=== PATIENT | male | born 1970 | race Caucasian/White ===

== ENCOUNTER 2020-02-28 19:38 | Emergency (ER) | payer OTHER, SELFPAY ==
[~2020-02-28] VITALS: Ht 170.2 cm; Wt 99.3 kg
[2020-02-28 20:11] VITALS: BP_SYST 151
--- NOTE | 2020-02-28 20:11 | NUR ---
Patient brought in via bls for cough and congestion x 5 days. Patient reports taking COVID test on Monday and tested positive. Patient has exposure to both daughters that have been tested and positive. Able to speak full sentences. Productive cough. Pain 6/10 sinus pain. No acute distress noted. Will continue to monitor.
--- NOTE | 2020-02-28 20:49 | NUR ---
ISIDRO CALLED [phone] WOULD LIKE TO BE UPDATED ON CONDITION
[2020-02-28] MEDS ORDERED: ACETAMINOPHEN 500 MG TABLET PO ONE (21:00)
--- NOTE | 2020-02-28 21:29 | NUR ---
RECEIVED AND IN ROOM, PT CALM, ALERT, RESP UNLABORED, SKIN WARM AND DRY. COMMUNICATES CLEARLY, C/O FLU LIKE SINCE MONDAY INCREASED TODAY. REPORTED POS FOR COVID
--- NOTE | 2020-02-28 21:36 | NUR ---
Patient's daughter called reports that he took Ivexgterm 6 mg, anti parasitic once today and mucinex once 2 tablets. notified.
[2020-02-28 21:47] LABS: BASOPHILS % (AUTO) 0.1 % (0.0-2.0); HEMATOCRIT 47.8 % (36-54); LYMPHOCYTES # (AUTO) 0.8 K/uL (1.0-5.5); LYMPHOCYTES % (AUTO) 12.4 % (20.5-51.5); MEAN CORPUSCULAR HEMOGLOBIN 30 pg (27-31); MEAN CORPUSCULAR HGB CONC 34 % (32-36); MEAN CORPUSCULAR VOLUME 91 fL (79.0-98.0); MONOCYTES # (AUTO) 0.5 K/uL (0.0-1.0); MONOCYTES % (AUTO) 7.4 % (1.7-9.3); NEUTROPHILS # (AUTO) 5.2 K/uL (1.8-7.7); NEUTROPHILS % (AUTO) 80.1 % (40.0-70.0); PLATELET COUNT (AUTO) 170 K/uL (130-430); RED BLOOD CELL COUNT(AUTO) 5.29 MIL/uL (4.2-6.2); RED CELL DISTRIBUTION WIDTH 12.9 % (9.0-15.0); WHITE BLOOD COUNT (AUTO) 6.5 K/uL (4.8-10.8)
[2020-02-28 21:49] LABS: CALCIUM 8.9 mg/dL (8.4-11.0); CREATININE 1.25 mg/dL (0.55-1.30); POTASSIUM 3.9 mmol/L (3.5-5.1)
--- NOTE | 2020-02-28 21:52 | NUR ---
COMMUNICATES IN FULL COMPLETE SENTENCES, SKIN WARM AND DRY. RESP TACHYPNEIC FREQUENT COUGHING, NAUSEA. MEDICATED WITH TYLENOL
[2020-02-28 21:55] LABS: ALBUMIN 3.6 g/dL (3.4-4.8); TOTAL BILIRUBIN 0.6 mg/dL (0.0-1.0)
[2020-02-28 22:56] LABS: BILIRUBIN,URINE NEGATIVE (NEGATIVE); BLOOD, URINE NEGATIVE (NEGATIVE); CLARITY/URINE CLEAR (CLEAR); COLOR,URINE YELLOW (YELLOW); GLUCOSE,URINE NEGATIVE (NEGATIVE); KETONES,URINE 2+ (NEGATIVE); LEUKOCYTE ESTERASE ,URINE NEGATIVE (NEGATIVE); NITRITE, URINE NEGATIVE (NEGATIVE); PH,URINE 5.5 (5.0-8.0); PROTEIN URINE 2+ (NEGATIVE)
--- NOTE | 2020-02-28 23:00 | NUR ---
Pt resting in ed bed using cellphone. pt speaking in full sentances with occasional cough.
[2020-02-28 23:01] LABS: RBC,URINE 0-3 /HPF (0-3)
[2020-02-28 23:02] LABS: BACTERIA,URINE FEW /HPF (None Seen); WBC,URINE 0-3 /HPF (0-3)
--- NOTE | 2020-02-29 00:46 | NUR ---
Pt updated family via cellphone
[2020-02-29 02:37] VITALS: BP_SYST 138
--- NOTE | 2020-02-29 02:37 | NUR ---
Patient given written and verbal discharge instructions and verbalizes understanding. ER MD discussed with patient the results and treatment provided. Patient in stable condition. ID arm band removed. Rx of ALBUTEROL AND TESSALON PERLES given. Patient educated on pain management and to follow up with PMD. Pain Scale 0/10 Opportunity for questions provided and answered. Medication side effect fact sheet provided.
== END 2020-02-29 02:37 | disposition home or self-care (01) ==
LOC: SED 19:38
DX: U07.1 COVID-19 (principal); J12.89 Other viral pneumonia
CPT/HCPCS: 36415; 71045; 80053; 81000-TC; 82150-TC; 83690-TC; 85025; 99284

== ENCOUNTER 2022-05-22 00:12 | Emergency (ER) | payer OTHER ==
[~2022-05-22] VITALS: Ht 172.7 cm; Wt 97.5 kg
[2022-05-22 00:12] VITALS: BP_SYST 118
[2022-05-22] MEDS ORDERED: LORazepam 2 MG/ML VIAL IM ONE ×2 (01:00→05:30)
[2022-05-22] MEDS ORDERED: BENZTROPINE MESYLATE 2 MG/ 2 ML AMP IM ONE ×2 (01:00→05:30)
[2022-05-22] MEDS ORDERED: NACL 0.9% 1,000 ML IV ONE ×2 (01:00)
[2022-05-22] MEDS ORDERED: HALOPERIDOL LACTATE 5 MG/ML VIAL IM ONE ×2 (01:00→05:30)
[2022-05-22] MEDS ORDERED: PROCHLORPERAZINE EDISYLATE 10 MG/2 ML VIAL IVP ONE (01:15)
[2022-05-22 01:48] LABS: BASOPHILS % (AUTO) 0.4 % (0.0-2.0); EOSINOPHILS # (AUTO) 0.1 K/uL (0.0-0.4); EOSINOPHILS % (AUTO) 0.9 % (0.0-4.0); HEMATOCRIT 44.4 % (36-54); LYMPHOCYTES # (AUTO) 2.5 K/uL (1.0-5.5); LYMPHOCYTES % (AUTO) 28.1 % (20.5-51.5); MEAN CORPUSCULAR VOLUME 91 fL (79.0-98.0); MONOCYTES # (AUTO) 0.7 K/uL (0.0-1.0); MONOCYTES % (AUTO) 7.3 % (1.7-9.3); NEUTROPHILS # (AUTO) 5.7 K/uL (1.8-7.7); NEUTROPHILS % (AUTO) 63.3 % (40.0-70.0); PLATELET COUNT (AUTO) 238 K/uL (130-430); RED CELL DISTRIBUTION WIDTH 12.9 % (9.0-15.0)
[2022-05-22 02:03] LABS: ANION GAP 13 (5-15); CALCIUM 8.4 mg/dL (8.4-11.0); CHLORIDE 101 mmol/L (98-107); CREATININE 1.15 mg/dL (0.55-1.30); GLUCOSE 134 mg/dL (70-99); POTASSIUM 3.1 mmol/L (3.5-5.1); UREA NITROGEN, BLOOD 16 mg/dL (8-21)
--- NOTE | 2022-05-22 02:03 | NUR ---
Pt [employer]. significant other is with pt. pt is acting bizarre and crying, hitting, and pulling off blood pressure cuff. pt vomited, no blood noted. significant other states pt was at home and started drinking. pt is inappropriate stating "fuck you" to staff and ambulance crew.
[2022-05-22 02:07] LABS: PROTHROMBIN TIME 10.8 SECS (9.5-12.5)
[2022-05-22 02:24] LABS: ALANINE AMINOTRANSFERASE 99 U/L (12-78); ALBUMIN 4.1 g/dL (3.4-4.8); ALCOHOL, BLOOD 231 mg/dL (<10); ASPARTATE AMINOTRANSFERASE 42 U/L (10-37); LIPASE 171 U/L (73-393); TOTAL BILIRUBIN 0.4 mg/dL (0.0-1.0)
[2022-05-22 02:32] LABS: ACETAMINOPHEN < 1 ug/mL (1-30); GFR AFRICAN AMERICAN 86 mL/min (>90)
[2022-05-22 04:00] VITALS: BP_SYST 148
--- NOTE | 2022-05-22 05:00 | NUR ---
pt woke up, acting bizarre, kicking and slapping staff. pt placed on soft restraints per ER MD GEIGER order. pt given a second B52 order security called to bedside. orders carried out.
--- NOTE | 2022-05-22 07:12 | NUR ---
gave report to MICHAEL Mcginnis endorsed pt in stable condition all questions answered
--- NOTE | 2022-05-22 08:10 | NUR ---
Pt woke up in restraints and was agressive toward staff. MD ordered d/c. was brought back in and questioned/complained about her 's release. Pt was changed after urinating on himself. Attemt was made to transfer pt to wheelchair by two staff members, pt was fighting against our movement of him to the chair. Numerous attempts to wake the patient up despite him almost falling failed and pt was eventually placed back on the gurney. accused RN of being aggressive with the patient. All treatment provided was done with concern for patient's safety. RN excused herself from situation and deferred to Charge nurse Trell RODRIGUEZ for assistance.
--- NOTE | 2022-05-22 08:15 | NUR ---
Patient given written and verbal discharge instructions and verbalizes understanding. ER Dr. Bill YORK discussed with patient the results and treatment provided. Patient in stable condition. ID arm band removed. IV catheter removed intact and dressing applied, no active bleeding. Patient educated on pain management and to follow up with PMD. Pain Scale 0/10. Opportunity for questions provided and answered. Medication side effect fact sheet provided.
[2022-05-22] MEDS ORDERED: AMMONIA INHALANT 0.3mL AMPUL INH ONE (08:21)
== END 2022-05-22 08:10 | disposition home or self-care (01) ==
LOC: SED 00:12
DX: F10.129 Alcohol abuse with intoxication, unspecified (principal); Y90.6 Blood alcohol level of 120-199 mg/100 ml; Z79.899 Other long term (current) drug therapy
CPT/HCPCS: 99284; 96374; 96361; 80053; 83690; 85025; 85610; 85730; 87040; 84484; 36415; 83605; 96372; G0482; J0515; J1630; J2060; J0780; J7030; G0480; G0481